=== PATIENT | female | born 1945 | race Caucasian/White ===

== ENCOUNTER 2019-03-03 00:57 | Outpatient (RCR) | payer BC, MEDICARE, SELFPAY ==
[2019-03-03] MEDS: Normal Saline Flush 10 ML SYR IVP (06:55)
[2019-03-03 07:19] LABS: Abs Immature Grans 0.01 k/cumm (0.0-0.09); HCT 29.9 % (36.0-46.0); HGB 8.6 g/dL (12.0-15.5); Mean Corp. HGB Concentration 28.8 g/dL (32.0-36.0); Mean Corpuscular Hemoglobin 28.2 pg (27.0-33.0); Mean Platelet Volume 11.8 fL (8.0-11.0); Platelet Count 260 x1000/uL (130-400); RBC 3.05 m/cumm (4.00-5.20); RBC Distribution Width 15.2 % (11.7-14.6); White Blood Cell Count 2.15 k/cumm (4.4-10.8)
[2019-03-03 07:40] LABS: ALT 28 U/L (12-78); AST 13 U/L (15-37); Albumin 3.5 g/dL (3.4-5.0); Alkaline Phosphatase 97 U/L (46-116); Anion Gap 9.7 mmol/L (3-11); BUN 15 mg/dL (7-18); Bilirubin, Total 0.5 mg/dL (0.2-1.0); CO2 27.3 mmol/L (21.0-32.0); CREATININE 0.65 mg/dL (0.55-1.02); Calcium 9.4 mg/dL (8.5-10.1); Chloride 108 mmol/L (98-107); Glucose 102 mg/dL (70-100); Potassium 4.4 mmol/L (3.5-5.1); Sodium 145 mmol/L (136-145)
[2019-03-03 07:59] LABS: Diff Comment Manual Differential
[2019-03-03 08:00] LABS: Anisocytosis 2+; Hypochromasia 2+; Microcytosis 2+; Poikilocytes 2+; Polychromasia Present
[2019-03-03 08:01] LABS: Absolute Lymphocyte Count 1.03 k/cumm (1.2-3.4); Absolute Monocyte Count 0.02 k/cumm (0.11-0.7)
== END 2019-03-22 23:59 | disposition home or self-care (01) ==
LOC: INF 00:57
PROVIDERS: PCP Internal Medicine; Visit Provider Internal Medicine Hematology & Oncology
DX: D61.818 Other pancytopenia (principal); Z45.2 Encounter for adjustment and management of vascular access device
CPT/HCPCS: 36591; 80053; 85025

== ENCOUNTER 2019-04-14 07:00 | Outpatient (RCR) | payer BC, MEDICARE, SELFPAY ==
[2019-03-31] MEDS: Heparin 500 UNITS/5 ML SYRINGE IV (06:50)
[2019-03-31 07:22] LABS: HCT 30.9 % (36.0-46.0); HGB 8.8 g/dL (12.0-15.5); Mean Corp. HGB Concentration 28.5 g/dL (32.0-36.0); Mean Corpuscular Hemoglobin 27.2 pg (27.0-33.0); Mean Corpuscular Volume 95.4 fL (80-95); Mean Platelet Volume 11.9 fL (8.0-11.0); RBC 3.24 m/cumm (4.00-5.20); RBC Distribution Width 17.1 % (11.7-14.6)
[2019-03-31 07:33] LABS: ALT 27 U/L (14-59); AST 17 U/L (15-37); Albumin 3.5 g/dL (3.4-5.0); Alkaline Phosphatase 103 U/L (46-116); Anion Gap 7.7 mmol/L (3-11); BUN 17 mg/dL (7-18); Bilirubin, Total 0.4 mg/dL (0.2-1.0); CO2 26.3 mmol/L (21.0-32.0); CREATININE 0.73 mg/dL (0.55-1.02); Calcium 9.3 mg/dL (8.5-10.1); Chloride 106 mmol/L (98-107); Glucose 102 mg/dL (70-100); Potassium 4.3 mmol/L (3.5-5.1); Sodium 140 mmol/L (136-145); Total Protein 7.2 g/dL (6.4-8.2)
[2019-03-31 08:09] LABS: White Blood Cell Count 1.77 k/cumm (4.4-10.8)
[2019-03-31 08:10] LABS: Absolute Lymphocyte Count 1.04 k/cumm (1.2-3.4); Absolute Monocyte Count 0.04 k/cumm (0.11-0.7); Absolute Neutrophil Count 0.67 k/cumm (1.2-6.7); Platelet Count 247 x1000/uL (130-400)
[2019-03-31 08:11] LABS: Anisocytosis 2+; Diff Comment Manual Differential; Hypochromasia 3+; Nucleated RBC 1 /100WBC; Other Cells 1; Polychromasia Present
[2019-03-31 08:12] LABS: Poikilocytes 2+; Stomatocytes 2+
== END 2019-04-21 23:59 | disposition home or self-care (01) ==
LOC: INF 07:00
PROVIDERS: PCP Internal Medicine; Visit Provider Internal Medicine Hematology & Oncology
DX: D61.818 Other pancytopenia (principal); Z45.2 Encounter for adjustment and management of vascular access device
CPT/HCPCS: 36591; 80053; 85025

== ENCOUNTER 2019-04-14 07:06 | Outpatient (RCR) | payer BC, SELFPAY ==
[2019-04-14] MEDS: Normal Saline Flush 10 ML SYR IVP (07:41)
[2019-04-14] MEDS: Heparin 500 UNITS/5 ML SYRINGE IVP (07:42)
[2019-04-14 07:46] LABS: ALT 27 U/L (14-59); AST 16 U/L (15-37); Albumin 3.5 g/dL (3.4-5.0); Alkaline Phosphatase 98 U/L (46-116); Anion Gap 9.5 mmol/L (3-11); BUN 21 mg/dL (7-18); Bilirubin, Total 0.5 mg/dL (0.2-1.0); CO2 23.5 mmol/L (21.0-32.0); Chloride 110 mmol/L (98-107); Glucose 99 mg/dL (70-100); Potassium 4.3 mmol/L (3.5-5.1); Sodium 143 mmol/L (136-145); Total Protein 6.8 g/dL (6.4-8.2)
[2019-04-14 07:47] LABS: HCT 26.9 % (36.0-46.0); HGB 7.7 g/dL (12.0-15.5); Mean Corp. HGB Concentration 28.6 g/dL (32.0-36.0); Mean Corpuscular Hemoglobin 26.8 pg (27.0-33.0); Mean Corpuscular Volume 93.7 fL (80-95); Mean Platelet Volume 11.2 fL (8.0-11.0); RBC 2.87 m/cumm (4.00-5.20); RBC Distribution Width 17.4 % (11.7-14.6)
[2019-04-14 08:34] LABS: Absolute Lymphocyte Count 0.75 k/cumm (1.2-3.4); Absolute Neutrophil Count 0.73 k/cumm (1.2-6.7); Anisocytosis 2+; Basophilic Stippling Present; Diff Comment Manual Differential; Hypochromasia 3+; Macrocytosis 1+; Microcytosis 1+; Nucleated RBC 1 /100WBC; Polychromasia Present
[2019-04-14 08:35] LABS: Platelet Count 88 x1000/uL (130-400); Poikilocytes 2+
[2019-04-14 08:37] LABS: White Blood Cell Count 1.49 k/cumm (4.4-10.8)
== END 2019-04-21 23:59 | disposition home or self-care (01) ==
LOC: INF 07:06
PROVIDERS: PCP Internal Medicine; Visit Provider Internal Medicine Hematology & Oncology
DX: D61.818 Other pancytopenia (principal); Z45.2 Encounter for adjustment and management of vascular access device
CPT/HCPCS: 36591; 80053; 85025

== ENCOUNTER 2019-05-06 07:00 | Outpatient (RCR) | payer BC, MEDICARE, SELFPAY ==
[2019-04-23] MEDS: Heparin 500 UNITS/5 ML SYRINGE (09:30)
[2019-04-23 09:33] LABS: Abs Immature Grans 0.01 k/cumm (0.0-0.09); Absolute Basophil Count 0.01 k/cumm (0.0-0.2); Absolute Eosinophil Count 0.01 k/cumm (0.0-0.7); Absolute Lymphocyte Count 0.82 k/cumm (1.2-3.4); Absolute Monocyte Count 0.04 k/cumm (0.11-0.7); Basophils % 0.8; Eosinophils % 0.8; HGB 7.8 g/dL (12.0-15.5); Immature Grans % 0.8; Lymphocytes % 62.6; Mean Corp. HGB Concentration 28.9 g/dL (32.0-36.0); Mean Corpuscular Hemoglobin 26.9 pg (27.0-33.0); Mean Corpuscular Volume 93.1 fL (80-95); Mean Platelet Volume 11.5 fL (8.0-11.0); Monocytes % 3.1; Neutrophils % 31.9; RBC Distribution Width 18.9 % (11.7-14.6)
[2019-04-23 09:47] LABS: ALT 26 U/L (14-59); AST 18 U/L (15-37); Albumin 3.2 g/dL (3.4-5.0); Alkaline Phosphatase 86 U/L (46-116); BUN 15 mg/dL (7-18); Bilirubin, Total 0.5 mg/dL (0.2-1.0); CREATININE 0.77 mg/dL (0.55-1.02); Calcium 9.2 mg/dL (8.5-10.1); Chloride 109 mmol/L (98-107); Glucose 108 mg/dL (70-100); Sodium 143 mmol/L (136-145); Total Protein 6.8 g/dL (6.4-8.2)
[2019-04-23 10:25] LABS: White Blood Cell Count 1.31 k/cumm (4.4-10.8)
[2019-04-23 10:26] LABS: Absolute Neutrophil Count 0.42 k/cumm (1.2-6.7)
[2019-04-23 10:27] LABS: Anisocytosis 2+; Diff Comment Agrees w/ Instrument; Hypochromasia 2+; Nucleated RBC 1 /100WBC; Platelet Count 212 x1000/uL (130-400)
[2019-04-23 10:28] LABS: Poikilocytes 2+; Polychromasia Present
[2019-04-24 11:55] LABS: Other Cells 3
[2019-05-06] MEDS: Normal Saline Flush 10 ML SYR IVP (07:00)
[2019-05-06] MEDS: Heparin 500 UNITS/5 ML SYRINGE IV (07:00)
[2019-05-06 07:34] LABS: Abs Immature Grans 0.02 k/cumm (0.0-0.09); HCT 29.9 % (36.0-46.0); HGB 8.7 g/dL (12.0-15.5); Mean Corp. HGB Concentration 29.1 g/dL (32.0-36.0); Mean Corpuscular Hemoglobin 26.7 pg (27.0-33.0); Mean Corpuscular Volume 91.7 fL (80-95); Mean Platelet Volume 12.2 fL (8.0-11.0); Platelet Count 216 x1000/uL (130-400); RBC 3.26 m/cumm (4.00-5.20); RBC Distribution Width 18.5 % (11.7-14.6)
[2019-05-06 07:48] LABS: ALT 17 U/L (14-59); AST 15 U/L (15-37); Albumin 3.4 g/dL (3.4-5.0); Alkaline Phosphatase 93 U/L (46-116); Anion Gap 9.2 mmol/L (3-11); BUN 17 mg/dL (7-18); Bilirubin, Total 0.5 mg/dL (0.2-1.0); CO2 27.8 mmol/L (21.0-32.0); CREATININE 0.76 mg/dL (0.55-1.02); Calcium 9.2 mg/dL (8.5-10.1); Chloride 107 mmol/L (98-107); Glucose 115 mg/dL (70-100); Potassium 3.8 mmol/L (3.5-5.1); Sodium 144 mmol/L (136-145); Total Protein 6.9 g/dL (6.4-8.2)
[2019-05-06 08:10] LABS: Absolute Lymphocyte Count 0.95 k/cumm (1.2-3.4); Absolute Monocyte Count 0.21 k/cumm (0.11-0.7)
[2019-05-06 08:11] LABS: Anisocytosis 2+; Diff Comment Manual Differential; Hypochromasia 2+; Nucleated RBC 1 /100WBC; Other Cells 2
[2019-05-06 08:12] LABS: Poikilocytes 3+; Polychromasia Present
== END 2019-05-22 23:59 | disposition home or self-care (01) ==
LOC: INF 07:00
PROVIDERS: PCP Internal Medicine; Visit Provider Internal Medicine Hematology & Oncology
DX: D61.818 Other pancytopenia (principal)
CPT/HCPCS: 36591; 80053; 85025

== ENCOUNTER 2019-06-11 08:01 | Outpatient (RCR) | payer BC, MEDICARE, SELFPAY ==
[2019-06-11] MEDS: Heparin 500 UNITS/5 ML SYRINGE (09:45)
[2019-06-11] MEDS: Normal Saline Flush 10 ML SYR IVP (09:47)
[2019-06-11 09:51] LABS: Abs Immature Grans 0.01 k/cumm (0.0-0.09); HCT 30.8 % (36.0-46.0); HGB 8.8 g/dL (12.0-15.5); Mean Corp. HGB Concentration 28.6 g/dL (32.0-36.0); Mean Corpuscular Volume 94.5 fL (80-95); Mean Platelet Volume 10.9 fL (8.0-11.0); RBC 3.26 m/cumm (4.00-5.20); RBC Distribution Width 20.5 % (11.7-14.6)
[2019-06-11 10:09] LABS: ALT 30 U/L (14-59); AST 20 U/L (15-37); Albumin 3.7 g/dL (3.4-5.0); Alkaline Phosphatase 93 U/L (46-116); Anion Gap 8.7 mmol/L (3-11); BUN 24 mg/dL (7-18); Bilirubin, Total 0.5 mg/dL (0.2-1.0); CO2 26.3 mmol/L (21.0-32.0); CREATININE 0.72 mg/dL (0.55-1.02); Calcium 9.3 mg/dL (8.5-10.1); Chloride 106 mmol/L (98-107); Glucose 102 mg/dL (74-106); Potassium 4.5 mmol/L (3.5-5.1); Sodium 141 mmol/L (136-145); Total Protein 7.2 g/dL (6.4-8.2)
[2019-06-11 10:13] LABS: Absolute Lymphocyte Count 1.01 k/cumm (1.2-3.4); Absolute Neutrophil Count 0.72 k/cumm (1.2-6.7); Atypical Lymphocytes % 4
[2019-06-11 10:14] LABS: Absolute Monocyte Count 0.04 k/cumm (0.11-0.7); Anisocytosis 2+; Diff Comment Manual Differential; Hypochromasia 2+; Macrocytosis 1+; Microcytosis 2+; Other Cells 2; Polychromasia Present
[2019-06-11 10:15] LABS: Platelet Count 265 x1000/uL (130-400); Poikilocytes 2+
== END 2019-06-21 23:59 | disposition home or self-care (01) ==
LOC: INF 08:01
PROVIDERS: PCP Internal Medicine; Visit Provider Internal Medicine
DX: D61.818 Other pancytopenia (principal); Z45.2 Encounter for adjustment and management of vascular access device
CPT/HCPCS: 36591; 80053; 85025

== ENCOUNTER 2019-07-21 01:14 | Outpatient (RCR) | payer BC, MEDICARE, SELFPAY ==
[2019-06-23] MEDS: Normal Saline Flush 10 ML SYR IVP (07:20)
[2019-06-23 07:30] LABS: Abs Immature Grans 0.01 k/cumm (0.0-0.09); HGB 8.5 g/dL (12.0-15.5); Mean Corp. HGB Concentration 29.3 g/dL (32.0-36.0); Mean Corpuscular Hemoglobin 27.3 pg (27.0-33.0); Mean Corpuscular Volume 93.2 fL (80-95); Mean Platelet Volume 11.2 fL (8.0-11.0); Platelet Count 175 x1000/uL (130-400); RBC 3.11 m/cumm (4.00-5.20); RBC Distribution Width 18.7 % (11.7-14.6)
[2019-06-23 07:46] LABS: ALT 22 U/L (14-59); AST 17 U/L (15-37); Albumin 3.4 g/dL (3.4-5.0); Alkaline Phosphatase 101 U/L (46-116); BUN 25 mg/dL (7-18); Bilirubin, Total 0.3 mg/dL (0.2-1.0); CREATININE 0.99 mg/dL (0.55-1.02); Chloride 108 mmol/L (98-107); Estimated GFR 55.14 (mL/min/1.73m2); Glucose 120 mg/dL (74-106); Potassium 4.5 mmol/L (3.5-5.1); Sodium 142 mmol/L (136-145); Total Protein 6.7 g/dL (6.4-8.2)
[2019-06-23 08:08] LABS: Absolute Lymphocyte Count 1.04 k/cumm (1.2-3.4); Absolute Monocyte Count 0.04 k/cumm (0.11-0.7); Absolute Neutrophil Count 0.69 k/cumm (1.2-6.7); White Blood Cell Count 1.76 k/cumm (4.4-10.8)
[2019-06-23 08:09] LABS: Anisocytosis 2+; Diff Comment Manual Differential; Hypochromasia 2+; Macrocytosis 1+; Microcytosis 2+; Poikilocytes 2+; Polychromasia Present
[2019-07-14] MEDS: Heparin 500 UNITS/5 ML SYRINGE (07:37)
[2019-07-14] MEDS: Normal Saline Flush 10 ML SYR IVP (07:37)
[2019-07-14 07:44] LABS: Absolute Eosinophil Count 0.01 k/cumm (0.0-0.7); HCT 25.3 % (36.0-46.0); HGB 7.5 g/dL (12.0-15.5); Mean Corp. HGB Concentration 29.6 g/dL (32.0-36.0); Mean Corpuscular Hemoglobin 28.5 pg (27.0-33.0); Mean Corpuscular Volume 96.2 fL (80-95); Mean Platelet Volume 12.5 fL (8.0-11.0); RBC 2.63 m/cumm (4.00-5.20); RBC Distribution Width 21.3 % (11.7-14.6)
[2019-07-14 08:06] LABS: ALT 21 U/L (14-59); AST 18 U/L (15-37); Albumin 3.3 g/dL (3.4-5.0); Alkaline Phosphatase 90 U/L (46-116); Anion Gap 11.1 mmol/L (3-11); BUN 17 mg/dL (7-18); Bilirubin, Total 0.5 mg/dL (0.2-1.0); CO2 24.9 mmol/L (21.0-32.0); CREATININE 0.78 mg/dL (0.55-1.02); Calcium 8.7 mg/dL (8.5-10.1); Chloride 108 mmol/L (98-107); Glucose 108 mg/dL (74-106); Potassium 4.6 mmol/L (3.5-5.1); Sodium 144 mmol/L (136-145); Total Protein 6.5 g/dL (6.4-8.2)
[2019-07-14 08:07] LABS: White Blood Cell Count 1.13 k/cumm (4.4-10.8)
[2019-07-14 08:09] LABS: Absolute Monocyte Count 0.01 k/cumm (0.11-0.7); Other Cells 4; Platelet Count 115 x1000/uL (130-400)
[2019-07-14 08:10] LABS: Anisocytosis 3+; Diff Comment Manual Differential; Hypochromasia 2+; Macrocytosis 1+; Microcytosis 1+; Poikilocytes 2+; Polychromasia Present
[2019-07-14 08:11] LABS: Absolute Lymphocyte Count 0.78 k/cumm (1.2-3.4); Absolute Neutrophil Count 0.28 k/cumm (1.2-6.7); Nucleated RBC 1 /100WBC
[2019-07-21] MEDS: Normal Saline Flush 10 ML SYR IVP (07:59)
[2019-07-21] MEDS: Heparin 500 UNITS/5 ML SYRINGE IV (08:00)
[2019-07-21 08:12] LABS: Absolute Monocyte Count 0.01 k/cumm (0.11-0.7); HGB 8.5 g/dL (12.0-15.5); Mean Corp. HGB Concentration 29.3 g/dL (32.0-36.0); Mean Corpuscular Volume 95.4 fL (80-95); Mean Platelet Volume 10.6 fL (8.0-11.0); RBC 3.04 m/cumm (4.00-5.20); RBC Distribution Width 20.5 % (11.7-14.6)
[2019-07-21 08:23] LABS: ALT 23 U/L (14-59); AST 19 U/L (15-37); Albumin 3.5 g/dL (3.4-5.0); Alkaline Phosphatase 93 U/L (46-116); Anion Gap 10.7 mmol/L (3-11); BUN 22 mg/dL (7-18); Bilirubin, Total 0.5 mg/dL (0.2-1.0); CO2 25.3 mmol/L (21.0-32.0); CREATININE 0.71 mg/dL (0.55-1.02); Calcium 9.2 mg/dL (8.5-10.1); Chloride 108 mmol/L (98-107); Glucose 119 mg/dL (74-106); Potassium 4.1 mmol/L (3.5-5.1); Sodium 144 mmol/L (136-145)
[2019-07-21 08:40] LABS: Absolute Neutrophil Count 0.43 k/cumm (1.2-6.7); White Blood Cell Count 1.26 k/cumm (4.4-10.8)
[2019-07-21 08:41] LABS: Absolute Lymphocyte Count 0.77 k/cumm (1.2-3.4); Atypical Lymphocytes % 1; Platelet Count 228 x1000/uL (130-400)
[2019-07-21 08:43] LABS: Anisocytosis 3+; Basophilic Stippling Present; Diff Comment Manual Differential; Hypochromasia 2+; Nucleated RBC 1 /100WBC; Other Cells 4
[2019-07-21 08:44] LABS: Poikilocytes 3+
== END 2019-07-22 23:59 | disposition home or self-care (01) ==
LOC: INF 01:14
PROVIDERS: Internal Medicine Hematology & Oncology; PCP Internal Medicine; Visit Provider Internal Medicine
DX: D61.818 Other pancytopenia (principal); Z45.2 Encounter for adjustment and management of vascular access device
CPT/HCPCS: 36591; 80053; 86900; 86901; 85025

== ENCOUNTER 2019-07-28 01:55 | Outpatient (RCR) | payer BC, MEDICARE, SELFPAY | END 2019-08-22 23:59 | disposition home or self-care (01) | LOC: INF 01:55 | PROVIDERS: PCP Internal Medicine; Visit Provider Internal Medicine | DX: R69 Illness, unspecified (principal) ==

== ENCOUNTER 2019-09-04 10:39 | Observation (INO) | payer BC, MEDICARE, SELFPAY ==
--- NOTE | 2019-09-04 10:44 | W.PM.HP.N ---
Date of service: 09/04/19 Time of Service: 10:44 Assessment and Plan Assessment and plan (1) Hypomagnesemia: Status: Acute Assessment and plan: mag level 0.9, will replete and follow (2) Hypokalemia: Status: Acute Assessment and plan: level 2.8, with replete and follow (3) History of stem cell transplant: Status: Acute Assessment and plan: will continue home medications, recommendations given by hemo/onc to decreased tacrolimus to 1 mg in am and 0.5 mg in pm. this is likely cause of electrolyte disburbances (4) MDS (myelodysplastic syndrome): Status: Acute Assessment and plan: follow by hemo/onc at [facility]. will continue f/u outpatient, continue home medications (5) Hypercholesteremia: Status: Acute Assessment and plan: stable, will continue home medications (6) Hypothyroidism: Status: Acute Assessment and plan: continue synthroid (7) Hypertension: Status: Acute Assessment and plan: monitor blood pressure and continue home medications (8) Discharge planning issues: Status: Acute Assessment and plan: anticipate a discharge to home with no services once electrolytes replaced. History of Present Illness History of Present Illness Chief Complaint: hypomagnesemia Narrative: Patient presents from outpatient infusion clinic for hypomagnesemia and hypokalemia. She was scheduled for outpatient infusion but when labs drawn and it was noted that her magnesium was 0.9 it was felt she would be best served admitted to observation status for electrolyte replacement and monitoring. Hospitalist services was contacted and patient was excepted. Plan is to replace electrolytes provide IV hydration and repeat labs in the a.m. Review of Systems Constitutional Constitutional: Denies chills and Denies fever(s) Cardiovascular Cardiovascular: Denies chest pain Gastrointestinal Gastrointestinal: Denies abdominal pain and Reports nausea [facility] Medical History (Updated 09/04/19 @ 10:58 by Suri Hua NP) Blind left eye (Inactive) Diverticulitis (Inactive) Hypercholesteremia (Acute) Hypertension (Acute) Hypothyroidism (Acute) Osteoarthritis (Inactive) Reactive airway disease (Acute) Social History (Updated 09/04/19 @ 10:49 by Suri Hua NP) Smoking/Tobacco Use Status: Never Alcohol Intake: current Alcohol Intake frequency: holidays/special occasions only Substance use type: does not use Additional Social history: in room @ this time, questions not asked. Meds Home Medications and Allergies Home Medications Medication Instructions Recorded Confirmed Type acyclovir 800 mg PO BID 09/04/19 09/04/19 History amiodarone 200 mg PO DAILY 09/04/19 09/04/19 History ciclopirox [Loprox] See Rx Instructions .ROUTE .COMPLEX 09/04/19 09/04/19 History diltiazem HCl 180 mg PO DAILY 09/04/19 09/04/19 History fluconazole 400 mg PO DAILY 09/04/19 09/05/19 History levothyroxine 75 mcg PO DAILY 09/04/19 09/04/19 History lorazepam 0.5 mg PO Q4H PRN PRN 09/04/19 09/04/19 History magnesium oxide-Mg AA chelate 2 tab PO DAILY 09/04/19 09/04/19 History metoprolol succinate 150 mg PO DAILY 09/04/19 09/05/19 History multivitamin 1 tab PO DAILY 09/04/19 09/04/19 History mycophenolate mofetil 1,000 mg PO TID 09/04/19 09/04/19 History nystatin 5 ml PO QID 09/04/19 09/04/19 History olanzapine [Zyprexa] 2.5 mg PO QPM 09/04/19 09/04/19 History ondansetron HCl 4 mg PO Q4H PRN 09/04/19 09/04/19 History pantoprazole 40 mg PO DAILY 09/04/19 09/04/19 History simvastatin 20 mg PO QPM 09/04/19 09/04/19 History triamcinolone acetonide See Rx Instructions .ROUTE .COMPLEX 09/04/19 09/04/19 History magnesium oxide 800 mg PO BID #0 tab 09/05/19 09/04/19 Rx potassium chloride 20 meq PO DAILY #30 tab 09/05/19 Rx tacrolimus 1.5 mg PO DAILY #0 cap 09/05/19 09/04/19 Rx Allergies Allergy/AdvReac Type Severity Reaction Status Date / Time nickel Allergy Skin Rash Unverified 09/04/19 14:55 Penicillins Allergy Hives Unverified 09/04/19 14:55 pentazocine [From Talwin] Allergy Visual Unverified 09/04/19 14:55 Disturbances prochlorperazine Allergy Other (See Unverified 09/04/19 14:55 [From Compazine] Comment) Exam Const General: cooperative, comfortable, no acute distress, frail appearing and ill appearing chronically Nutritional Appearance: average body habitus Orientation: alert, awake and oriented x3 Limitations: altered mental status Chest Chest: normal inspection of the chest Resp Effort & Inspection: normal respiratory effort Auscultation: clear to auscultation bilaterally Cardio Rate: regular rate Rhythm: regular rhythm GI Inspection: normal to inspection Palpation: soft Neuro General: alert and awake Results Labs Result diagrams: 09/05/19 13:32
[2019-09-04 10:45] VITALS: BP 148/80; PULSE 83; RESP 20; RESP 24; TEMP 37.3; O2SAT 94
[2019-09-04 10:59] VITALS: PULSE 88
[2019-09-04] MEDS: MAGNESIUM SULFATE 2 GM/50 ML BAG IVPB ×2 (11:30→13:18)
[2019-09-04] MEDS: Normal Saline 1,000 ML 125 ML IV ×2 (13:13→20:38)
[2019-09-04 14:14] VITALS: BP 148/80; PULSE 83; RESP 20; TEMP 37.3; O2SAT 94
[2019-09-04] MEDS: LORazepam 1 MG TAB PO (14:25)
[2019-09-04] MEDS: MAGNESIUM SULFATE 1 GM/100 ML BAG IVPB ×2 (15:12→16:19)
[2019-09-04 15:38] VITALS: BP 132/70; PULSE 75; RESP 18; TEMP 37; O2SAT 95
[2019-09-04] MEDS: POTASSIUM CHLORIDE 10 MEQ/100 ML BAG 100 MEQ IVPB ×4 (17:31→20:40)
[2019-09-04 18:22] LABS: Magnesium 2.6 mg/dL (1.8-2.4)
[2019-09-04 18:24] LABS: Potassium 2.7 mmol/L (3.5-5.1)
[2019-09-04 19:43] VITALS: BP 146/76; PULSE 78; RESP 18; TEMP 37.3; O2SAT 95
[2019-09-04] MEDS: Acyclovir 400 MG TAB 800 MG PO (22:13)
[2019-09-04] MEDS: OLANZapine 2.5 MG TAB PO (22:13)
[2019-09-04] MEDS: Simvastatin 20 MG TAB PO (22:13)
[2019-09-04] MEDS: Levothyroxine 75 MCG TAB PO (22:14)
[2019-09-04] MEDS: Tacrolimus 1 MG CAP 0.5 MG PO (22:15)
[2019-09-04 22:50] LABS: Potassium 3.2 mmol/L (3.5-5.1)
[2019-09-04 23:10] VITALS: BP 149/81; PULSE 88; RESP 17; TEMP 37.5; O2SAT 95
[2019-09-05] VITALS (7 sets, daily range): BP systolic 130–150; BP diastolic 71–80; PULSE 76–83; RESP 14–18; TEMP 37–37.4; O2SAT 95–97
[2019-09-05] MEDS: LORazepam 1 MG TAB PO (00:56)
[2019-09-05] MEDS: Normal Saline 1,000 ML 125 ML IV ×2 (03:46→11:31)
[2019-09-05] MEDS: POTASSIUM CHLORIDE 10 MEQ/100 ML BAG 100 MEQ IVPB ×2 (06:44→07:44)
[2019-09-05 06:50] LABS: Anion Gap 9.7 mmol/L (3-11); BUN 5 mg/dL (7-18); CO2 24.3 mmol/L (21.0-32.0); CREATININE 0.72 mg/dL (0.55-1.02); Calcium 7.6 mg/dL (8.5-10.1); Chloride 106 mmol/L (98-107); Glucose 99 mg/dL (74-106); Magnesium 1.4 mg/dL (1.8-2.4); Sodium 140 mmol/L (136-145)
[2019-09-05 07:13] LABS: Potassium 2.9 mmol/L (3.5-5.1)
[2019-09-05] MEDS: Acyclovir 400 MG TAB 800 MG PO (07:43)
[2019-09-05] MEDS: Tacrolimus 0.5 MG CAP 1 MG PO (07:44)
[2019-09-05] MEDS: POTASSIUM CHLORIDE 20 MEQ/100 ML BAG 100 MEQ IVPB ×3 (09:01→11:31)
[2019-09-05] MEDS: MAGNESIUM SULFATE 4 GM/100 ML BAG IVPB (09:08)
--- NOTE | 2019-09-05 10:43 | PHARADMIT ---
Admission Pharmacy Clinical Review ELECTROLYTE ABNORMALIIES, h/o Bone marrow transplant) Code Status Full Code Current Weight Wgt-69.8 kg Renally Cleared and Narrow Therapeutic Index Meds CrCl~ 50.27 mL/min Meds-OK QTc Value / Action Taken QTc- 428 & 454 BP Control, Fever BP- 149/71 Tmax- 37.5C Electrolytes reviewed Na-140 K+2.9 Mag- 1.4 DVT Prophylaxis No DVT proph, will ask MD Opiate Usage / Scheduled Bowel Regimen Ordered No No Plt/SCr for Heparin / Enoxaparin SCr-0.72 INR for Warfarin na H/H stable, WBC/Bands na Antibiotic appropriateness none Cultures and Sensitivities none Surgical ABX d/c within 24 hr na DM control / Insulin Dosing BG-99 Heart Failure (Check EF%) (DONOVAN's, B-Block, Diuretics) Amiodarone, Diltiazem, Toprol-XL, IV to PO Switch No Home Meds Reviewed Yes Home Meds Not Ordered ORDERED EXCEPT FOR BELOW MEDS Comments [facility] did not verify TAC Crm, nor the Loprox scalp lotion.
[2019-09-05] MEDS: Amiodarone 200 MG TAB PO (10:54)
[2019-09-05] MEDS: Metoprolol CR 50 MG TABCR 150 MG PO (10:54)
[2019-09-05] MEDS: Pantoprazole 40 MG TABCR PO (10:54)
[2019-09-05] MEDS: Multivitamin TAB 1 TAB PO (10:54)
[2019-09-05] MEDS: dilTIAZem CD 180 MG CAPCR PO (10:54)
--- NOTE | 2019-09-05 11:30 | INITIAL_ITS ---
- If Service Date Differs Date of service: 09/05/19 Time of Service: 11:30 Care Management Initial Assess REASON FOR HOSPITALIZATION:: Electrolyte Abnormalities PAST MEDICAL HISTORY/PAST SURGICAL HISTORY:: Medical History (Updated 09/04/19 @ 10:58 by Suri Hua NP). Blind left eye (Inactive). Diverticulitis (Inactive). Hypercholesteremia (Acute). Hypertension (Acute). Hypothyroidism (Acute). Osteoarthritis (Inactive). Reactive airway disease (Acute) PREVIOUS FUNCTIONAL STATUS/SOCIAL/FAMILY SUPPORTS:: Hazel lives in [place] with her , Ge. She recently had a bone marrow transplant. 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 She is independent at baseline. CURRENT FUNCTIONAL STATUS:: Hazel was sitting up in her chair when CM met with her. She reported that she was feeling better today. Per MD, her Potassium and Magnesium are being repleted today while she is here for observation. She stated that she is receiving excellent care at [facility]. CM will continue to follow. ADVANCE DIRECTIVES:: None on file. Has patient been provided with information about the portal?: No Did the patient sign up for the portal?: No CODE STATUS:: Full Code INSURANCE COVERAGE / FINANCIAL ISSUES:: BCBS/MCR CURRENT HOME/COMMUNITY SERVICES/EQUIPMENT:: Hazel does not currently have services or equipment at home. PRIMARY CARE PHYSICIAN:: Sindi Lawson POTENTIAL DISCHARGE NEEDS:: Evalutations for further needs, follow up appointments PATIENT/FAMILY EDUCATION NEEDS:: Review discharge instructions regarding activity levels and medications, discussion of self care needs and goals of care. ANTICIPATED BARRIERS TO DISCHARGE:: None identified at this time. TRANSPORTATION:: Anticipate Hazel will be transported home via private vehicle by her . PLAN:: Anticipate Hazel will return home with no additional services once medically cleared. She will be driven home by her via private vehicle when ready. She will follow up with her PCP, as recommended. CM will continue to follow.
[2019-09-05 13:53] LABS: Magnesium 2.3 mg/dL (1.8-2.4); Potassium 4.3 mmol/L (3.5-5.1)
--- NOTE | 2019-09-05 14:37 | W.NUTCONSULT ---
Date of service: 09/05/19 Time of Service: 14:37 Nutritional Consult ASSESSMENT: 73 year old female s/o stem cell transplant in July 2019 for MDS, s/p chemo. She was admitted due to low Mg and potassium, receiving repletion. PMH: hyperlipidemia, HTN. Met with Hazel today, she reports that her appetite is coming back slowly since treatment and that she mostly maintained her weight in last couple of weeks. Appears well nourished. Following regular meal plan with adequate intake. Reports no chewing or swallowing issues. No longer on neutrapenic precautions as WBC wnl. To discharge home today. will be available prn. MONITORING AND EVALUATION: po intake, weight, labs Time Spent in Nutritional Counseling and Treatment: 10 min spent face to face
--- NOTE | 2019-09-05 15:02 | W.PM.DS.N ---
Date of service: 09/05/19 Time of Service: 15:02 DS: Diagnosis Discharge Diagnosis (1) Hypomagnesemia: Status: Acute (2) Hypokalemia: Status: Acute (3) History of stem cell transplant: Status: Acute (4) MDS (myelodysplastic syndrome): Status: Acute (5) Hypercholesteremia: Status: Acute (6) Hypothyroidism: Status: Acute (7) Hypertension: Status: Acute (8) Discharge planning issues: Status: Acute Discharge Plan Disposition Patient Disposition: HOME Condition: Fair Discharge Details Reason For Visit: ELECTROLYTE ABNORMALITIES Admit Date/Time: 09/04/19 10:39 Admit Provider: Vaughn Tenorio Attending Provider: Vaughn Tenorio Primary Care Provider: Sindi Lawson [facility] Course Hospital Course: 73-year-old woman with myelodysplastic syndrome approximately 1 month status post bone marrow transplant was directed needed from infusion at the request of her oncologist for severe hypokalemia and hypomagnesemia. Patient got a total of 9 g of magnesium oxide and 100 mEq of potassium chloride intravenously during her overnight observation stay. Potassium on the day of discharge was 4.3 magnesium of 2.3. Her magnesium oxide was increased to 800 twice a day and she was given 20 mEq of potassium daily. Per the recommendation of her oncologist, the tacrolimus was also decreased from 1.5 mg twice daily to 1 mg in the morning and 0.5 mg in the evening, which she felt should mitigate the electrolyte disturbances. Also of note, the patient had some left dorsal wrist pain and tenderness over her dorsal carpal bones. She denied any trauma. We offered x-ray, but patient prefers to follow-up where her care team is in [facility]. She was given a neutral wrist splint. Home Meds and New Rx's Prescriptions: New potassium chloride 20 mEq tablet extended release 20 meq PO DAILY Qty: 30 RF: 1 Continued olanzapine [Zyprexa] 2.5 mg Tablet 2.5 mg PO QPM RF: 0 nystatin 100,000 unit/mL Suspension 5 ml PO QID RF: 0 diltiazem HCl 180 mg Capsule,Extended Release 24 Hr 180 mg PO DAILY RF: 0 amiodarone 200 mg Tablet 200 mg PO DAILY RF: 0 metoprolol succinate 50 mg Tablet Extended Release 24 Hr 150 mg PO DAILY RF: 0 mycophenolate mofetil 250 mg Capsule 1,000 mg PO TID RF: 0 fluconazole 200 mg Tablet 400 mg PO DAILY RF: 0 ondansetron HCl 4 mg Tablet 4 mg PO Q4H PRNRF: 0 triamcinolone acetonide 0.1 % Cream See Rx Instructions .ROUTE .COMPLEX RF: 0 acyclovir 800 mg Tablet 800 mg PO BID RF: 0 levothyroxine 75 mcg Tablet 75 mcg PO DAILY RF: 0 lorazepam 0.5 mg Tablet 0.5 mg PO Q4H PRN PRNRF: 0 pantoprazole 40 mg Tablet,Delayed Release (Dr/Ec) 40 mg PO DAILY RF: 0 simvastatin 20 mg Tablet 20 mg PO QPM RF: 0 ciclopirox [Loprox] 1 % Shampoo See Rx Instructions .ROUTE .COMPLEX RF: 0 magnesium oxide-Mg AA chelate 133 mg Tablet 2 tab PO DAILY RF: 0 multivitamin Tablet 1 tab PO DAILY RF: 0 Changed magnesium oxide 400 mg (241.3 mg magnesium) Tablet 800 mg PO BID Qty: 0 RF: 0 tacrolimus 0.5 mg Capsule 1.5 mg PO DAILY Qty: 0 RF: 0 Discharge Instructions Instructions: Hypokalemia (DC), Hypomagnesemia (DC) Additional Instructions: Follow-up with regular electrolyte monitoring per oncology plan Take increased dose magnesium and daily potassium supplementation Continue to ice your wrist and use splint for comfort, follow-up with your primary care Activity:: Activity as Tolerated Equipment/Supplies:: Left wrist splint Diet:: As Tolerated Discharge Orders Discharge Orders: Discharge Order (Routine); Ordered 09/05/19 Ordered By: Vaughn Tenorio DS: Summary Status at Discharge Functional status at discharge: independent ambulation Overall status at discharge: patient is back to baseline Mental Status: mental status grossly normal Speech and Movement: speech and movement normal Mood: congruent mood Affect: normal affect Time Spent with Patient providing and/or coordinating discharge services: Less than 30 minutes Exam Narrative Exam Narrative: General: Alert and oriented, no cute distress, nontoxic HEENT: Diffuse alopecia. Conjunctive are clear, no icterus. Moist mucous membranes. Cardiovascular: Regular rate and rhythm no murmurs gallops or rubs. Pulmonary: Normal respiratory effort. Clear to auscultation anteriorly. Abdomen: Active bowel sounds, soft, nontender. Extremities: No cyanosis, clubbing, or edema. Subtle swelling the dorsal mid wrist, tender to palpation. Pain worse with flexion or extension of digits, though she is able to move them. Area is not hot. Psych Mental Status: mental status grossly normal Speech and Movement: speech and movement normal Mood: congruent mood Affect: normal affect DS: Data Vitals/I&O Vitals and I&O: Vital Signs Temperature 37.0 C 09/05/19 11:07 Temperature Source Tympanic 09/05/19 11:07 Pulse 76 09/05/19 11:07 Pulse Rhythm Irregular 09/05/19 07:15 Respiratory Rate 14 09/05/19 11:07 Respiratory Effort Non-Labored 09/05/19 07:15 Respiratory Depth Normal 09/05/19 07:15 Respiratory Pattern Normal 09/05/19 07:15 Blood Pressure 130/80 09/05/19 11:07 Pulse Oximetry 95 09/05/19 11:07 Oxygen Delivery Method Room Air 09/05/19 11:07 Oxygen Flow Rate 0 09/05/19 11:07 Pain Level 4 09/05/19 11:07 Comment 09/05/19 11:07 Intake & Output 09/04/19 09/05/19 09/05/19 23:59 11:59 23:59 Intake Total 1700.416 / 8796.975 9714.417 / 2300.417 240 / 2300.417 Output Total 1300 / 1300 1500 / 1500 Balance 400.416 / 400.416 560.417 / 800.417 240 / 800.417 Weight 69.853 kg Intake: IV 1460.416 / 9198.628 3886.417 / 2060.417 Oral 240 / 240 240 / 240 Output: Urine 1300 / 1300 1500 / 1500 Other: Urine Color Yellow Yellow Urine Appearance Clear Clear Urine Odor Normal Normal Stool Size Moderate Stool Characteristics Soft Liquid Brown Voiding Methods Toilet Toilet Data Completed and Pending Labs on day of discharge: Labs from last 24 hours 09/05/19 09/05/19 09/04/19 13:32 06:05 22:37 Sodium 140 Potassium 4.3 D 2.9 L* 3.2 L Chloride 106 Carbon Dioxide 24.3 Anion Gap 9.7 BUN 5 L Creatinine 0.72 Estimated GFR/1.73 m2 >= 60.00 Glucose 99 Calcium 7.6 L Magnesium 2.3 1.4 L 09/04/19 09/04/19 18:10 18:10 Sodium Potassium 2.7 L* Chloride Carbon Dioxide Anion Gap BUN Creatinine Estimated GFR/1.73 m2 Glucose Calcium Magnesium 2.6 H [facility] Medical History (Updated 09/04/19 @ 10:58 by Suri Hua NP) Blind left eye (Inactive) Diverticulitis (Inactive) Hypercholesteremia (Acute) Hypertension (Acute) Hypothyroidism (Acute) Osteoarthritis (Inactive) Reactive airway disease (Acute) Social History (Updated 09/04/19 @ 10:49 by Suri Hua NP) Smoking/Tobacco Use Status: Never Alcohol Intake: current Alcohol Intake frequency: holidays/special occasions only Substance use type: does not use Additional Social history: in room @ this time, questions not asked.
[2019-09-05] MEDS: Heparin 500 UNITS/5 ML SYRINGE IVP (15:55)
--- NOTE | 2019-09-05 17:55 | PDOC.CMDIS ---
- If Service Date Differs Date of service: 09/05/19 Time of Service: 17:55 LACE Index Scoring Tool - Questions: Length of Stay (in days): 2 Acuity (Admit via E.D.?): No E.D. Visits: 0 - Answers: Total Score: 2 Risk of Readmission: Low Risk Care Management Discharge Reason for Hospitalization: Electrolyte Abnormalities Discharge Plan: Hazel will return home with no additional services at this time. Her will drive her home via private vehicle. She will follow up with her PCP, as recommended. Patient/Family Education Needs: Review discharge instructions regarding activity levels and medications, discussion of self care needs including ask me three
== END 2019-09-05 16:18 | disposition home or self-care (01) ==
PROVIDERS: Internal Medicine; Nurse Practitioner Acute Care; Admitting Provider Family Medicine; PCP Internal Medicine; Visit Provider Family Medicine
DX: E87.6 Hypokalemia (principal); E83.42 Hypomagnesemia; D46.9 Myelodysplastic syndrome, unspecified; Z94.81 Bone marrow transplant status; M25.532 Pain in left wrist; E03.9 Hypothyroidism, unspecified; E78.00 Pure hypercholesterolemia, unspecified; I10 Essential (primary) hypertension
CPT/HCPCS: 36415; 80048; 99220; 99238; 83735; 84132; 93005; 93010; G0378; J3475; J3480; J3490; J7517; L3908

== ENCOUNTER 2019-09-19 04:28 | Outpatient (RCR) | payer BC, SELFPAY ==
[2019-09-04] MEDS: Normal Saline Flush 10 ML SYR IVP (09:15)
[2019-09-04] MEDS: Normal Saline 1,000 ML 250 ML IV (09:15)
[2019-09-04 09:31] LABS: ALT 27 U/L (14-59); AST 36 U/L (15-37); Albumin 2.6 g/dL (3.4-5.0); Alkaline Phosphatase 118 U/L (46-116); BUN 12 mg/dL (7-18); Bilirubin, Total 0.4 mg/dL (0.2-1.0); Calcium 8.1 mg/dL (8.5-10.1); Chloride 101 mmol/L (98-107); Glucose 110 mg/dL (74-106); Magnesium 0.9 mg/dL (1.8-2.4); PHOSPHORUS 3.5 mg/dL (2.6-4.7); Sodium 139 mmol/L (136-145); Total Protein 6.1 g/dL (6.4-8.2)
[2019-09-04 09:49] LABS: Potassium 2.8 mmol/L (3.5-5.1)
[2019-09-12] MEDS: Normal Saline 1,000 ML 250 ML IV (08:15)
[2019-09-12] MEDS: Normal Saline Flush 10 ML SYR IVP (08:20)
[2019-09-12] MEDS: Heparin 500 UNITS/5 ML SYRINGE IV (08:20)
[2019-09-12 08:27] LABS: Abs Immature Grans 1.42 k/cumm (0.0-0.09); HGB 7.9 g/dL (12.0-15.5); Mean Corp. HGB Concentration 32.9 g/dL (32.0-36.0); Mean Corpuscular Hemoglobin 28.6 pg (27.0-33.0); Mean Platelet Volume 10.1 fL (8.0-11.0); RBC 2.76 m/cumm (4.00-5.20); RBC Distribution Width 15.7 % (11.7-14.6); White Blood Cell Count 12.63 k/cumm (4.4-10.8)
[2019-09-12 08:37] LABS: ALT 44 U/L (14-59); AST 38 U/L (15-37); Albumin 2.4 g/dL (3.4-5.0); Alkaline Phosphatase 175 U/L (46-116); Anion Gap 11.6 mmol/L (3-11); BUN 10 mg/dL (7-18); Bilirubin, Total 0.3 mg/dL (0.2-1.0); CO2 29.4 mmol/L (21.0-32.0); CREATININE 0.83 mg/dL (0.55-1.02); Calcium 8.9 mg/dL (8.5-10.1); Chloride 110 mmol/L (98-107); Glucose 123 mg/dL (74-106); Magnesium 1.1 mg/dL (1.8-2.4); PHOSPHORUS 2.6 mg/dL (2.6-4.7); Sodium 151 mmol/L (136-145); Total Protein 6.2 g/dL (6.4-8.2)
[2019-09-12 08:49] LABS: Potassium 2.8 mmol/L (3.5-5.1)
[2019-09-12 09:27] LABS: Diff Comment Manual Differential
[2019-09-12 09:28] LABS: Absolute Lymphocyte Count 0.25 k/cumm (1.2-3.4); Absolute Monocyte Count 2.65 k/cumm (0.11-0.7); Absolute Neutrophil Count 8.59 k/cumm (1.2-6.7); Promyelocytes % 1 %
[2019-09-12 09:29] LABS: Anisocytosis 1+; Polychromasia Present
[2019-09-12 09:30] LABS: Platelet Count 305 x1000/uL (130-400); Poikilocytes 1+
[2019-09-12] MEDS: POTASSIUM CHLORIDE 20 MEQ/100 ML BAG 50 MEQ IVPB ×5 (09:43→14:09)
[2019-09-12] MEDS: MAGNESIUM SULFATE 2 GM/50 ML BAG IVPB ×2 (09:44→11:20)
[2019-09-12 13:40] VITALS: BP 175/84; PULSE 75; RESP 19; TEMP 35.7; O2SAT 99
[2019-09-12] MEDS: MAGNESIUM SULFATE 1 GM/100 ML BAG IVPB (15:07)
[2019-09-19 08:25] LABS: HCT 26.1 % (36.0-46.0); HGB 8.2 g/dL (12.0-15.5); Mean Corp. HGB Concentration 31.4 g/dL (32.0-36.0); Mean Corpuscular Hemoglobin 29.2 pg (27.0-33.0); Mean Corpuscular Volume 92.9 fL (80-95); Platelet Count 256 x1000/uL (130-400); RBC 2.81 m/cumm (4.00-5.20); RBC Distribution Width 20.4 % (11.7-14.6); White Blood Cell Count 18.29 k/cumm (4.4-10.8)
[2019-09-19 08:37] LABS: ALT 38 U/L (14-59); AST 27 U/L (15-37); Albumin 2.9 g/dL (3.4-5.0); Alkaline Phosphatase 153 U/L (46-116); Anion Gap 9.7 mmol/L (3-11); BUN 19 mg/dL (7-18); Bilirubin, Total 0.2 mg/dL (0.2-1.0); CO2 25.3 mmol/L (21.0-32.0); CREATININE 1.02 mg/dL (0.55-1.02); Calcium 9.3 mg/dL (8.5-10.1); Chloride 104 mmol/L (98-107); Estimated GFR 53.27 (mL/min/1.73m2); Glucose 138 mg/dL (74-106); Magnesium 1.4 mg/dL (1.8-2.4); PHOSPHORUS 3.2 mg/dL (2.6-4.7); Potassium 4.3 mmol/L (3.5-5.1); Sodium 139 mmol/L (136-145); Total Protein 6.6 g/dL (6.4-8.2)
[2019-09-19] MEDS: MAGNESIUM SULFATE 2 GM/50 ML BAG IVPB ×2 (09:15→10:44)
[2019-09-19] MEDS: DEXTROSE 5%-WATER 1,000 ML 250 ML IV (09:15)
[2019-09-19 09:42] LABS: Absolute Neutrophil Count 13.17 k/cumm (1.2-6.7)
[2019-09-19 09:43] LABS: Absolute Eosinophil Count 0.37 k/cumm (0.0-0.7); Absolute Lymphocyte Count 0.37 k/cumm (1.2-3.4); Absolute Monocyte Count 1.46 k/cumm (0.11-0.7)
[2019-09-19 09:44] LABS: Absolute Basophil Count 0.18 k/cumm (0.0-0.2); Promyelocytes % 3 %
[2019-09-19 09:45] LABS: Anisocytosis 3+; Diff Comment Manual Differential; Other Cells 1
[2019-09-19 09:46] LABS: Hypochromasia 1+; Macrocytosis 1+; Microcytosis 1+; Poikilocytes 2+; Polychromasia Present
== END 2019-09-20 23:59 | disposition home or self-care (01) ==
LOC: INF 04:28
PROVIDERS: Internal Medicine; PCP Internal Medicine; Visit Provider Family Medicine
DX: E87.6 Hypokalemia (principal); E83.42 Hypomagnesemia; Z94.84 Stem cells transplant status; D46.9 Myelodysplastic syndrome, unspecified; Z45.2 Encounter for adjustment and management of vascular access device
CPT/HCPCS: 36591; 80053; 86850; 86900; 86901; 96360; 96361; 96365; 96366; 83735; 84100; 85025; J3475; J3480; J7060

== ENCOUNTER 2019-10-22 02:29 | Outpatient (RCR) | payer BC, MEDICARE, SELFPAY ==
[2019-09-24 08:31] LABS: ALT 32 U/L (14-59); AST 18 U/L (15-37); Albumin 3.1 g/dL (3.4-5.0); Alkaline Phosphatase 132 U/L (46-116); Anion Gap 8.3 mmol/L (3-11); BUN 33 mg/dL (7-18); Bilirubin, Total 0.3 mg/dL (0.2-1.0); CO2 24.7 mmol/L (21.0-32.0); CREATININE 1.16 mg/dL (0.55-1.02); Calcium 9.2 mg/dL (8.5-10.1); Chloride 106 mmol/L (98-107); Estimated GFR 45.92 (mL/min/1.73m2); Glucose 117 mg/dL (74-106); Magnesium 1.4 mg/dL (1.8-2.4); PHOSPHORUS 3.7 mg/dL (2.6-4.7); Potassium 4.5 mmol/L (3.5-5.1); Sodium 139 mmol/L (136-145); Total Protein 6.5 g/dL (6.4-8.2)
[2019-09-24 09:04] LABS: Abs Immature Grans 0.87 k/cumm (0.0-0.09); Absolute Lymphocyte Count 0.96 k/cumm (1.2-3.4); Absolute Monocyte Count 0.66 k/cumm (0.11-0.7); Absolute Neutrophil Count 13.93 k/cumm (1.2-6.7); Basophils % 0.4; Eosinophils % 0.8; HCT 25.7 % (36.0-46.0); HGB 8.1 g/dL (12.0-15.5); Immature Grans % 5.2 %; Lymphocytes % 5.8; Mean Corp. HGB Concentration 31.5 g/dL (32.0-36.0); Mean Corpuscular Hemoglobin 30.2 pg (27.0-33.0); Mean Corpuscular Volume 95.9 fL (80-95); Mean Platelet Volume 10.4 fL (8.0-11.0); Neutrophils % 83.8; Platelet Count 223 x1000/uL (130-400); RBC 2.68 m/cumm (4.00-5.20); RBC Distribution Width 23.7 % (11.7-14.6); White Blood Cell Count 16.62 k/cumm (4.4-10.8)
[2019-09-24 09:05] LABS: Absolute Basophil Count 0.07 k/cumm (0.0-0.2); Absolute Eosinophil Count 0.13 k/cumm (0.0-0.7)
[2019-09-24] MEDS: MAGNESIUM SULFATE 4 GM/100 ML BAG IVPB (09:05)
[2019-09-24] MEDS: Normal Saline Flush 10 ML SYR IVP (09:05)
[2019-09-24] MEDS: Heparin 500 UNITS/5 ML SYRINGE IV (09:06)
[2019-09-24 09:57] LABS: Anisocytosis 2+; Basophilic Stippling Present; Diff Comment Diff Reviewed
[2019-09-24 10:00] LABS: Macrocytosis 1+; Polychromasia Present
[2019-09-24 10:01] LABS: Poikilocytes 1+
[2019-10-09 10:12] LABS: Abs Immature Grans 0.07 k/cumm (0.0-0.09); Absolute Basophil Count 0.01 k/cumm (0.0-0.2); Absolute Eosinophil Count 0.05 k/cumm (0.0-0.7); Absolute Lymphocyte Count 1.37 k/cumm (1.2-3.4); Absolute Monocyte Count 0.32 k/cumm (0.11-0.7); Absolute Neutrophil Count 7.97 k/cumm (1.2-6.7); Basophils % 0.1; Eosinophils % 0.5; HCT 26.5 % (36.0-46.0); HGB 8.6 g/dL (12.0-15.5); Immature Grans % 0.7 %; Mean Corp. HGB Concentration 32.5 g/dL (32.0-36.0); Mean Corpuscular Hemoglobin 33.3 pg (27.0-33.0); Mean Corpuscular Volume 102.7 fL (80-95); Mean Platelet Volume 10.2 fL (8.0-11.0); Monocytes % 3.3; Neutrophils % 81.4; Platelet Count 146 x1000/uL (130-400); RBC 2.58 m/cumm (4.00-5.20); White Blood Cell Count 9.79 k/cumm (4.4-10.8)
[2019-10-09 10:28] LABS: ALT 27 U/L (14-59); AST 12 U/L (15-37); Albumin 3.4 g/dL (3.4-5.0); Alkaline Phosphatase 110 U/L (46-116); BUN 35 mg/dL (7-18); Bilirubin, Total 0.3 mg/dL (0.2-1.0); CREATININE 1.18 mg/dL (0.55-1.02); Calcium 9.3 mg/dL (8.5-10.1); Chloride 106 mmol/L (98-107); Estimated GFR 45.02 (mL/min/1.73m2); Glucose 134 mg/dL (74-106); Magnesium 1.7 mg/dL (1.8-2.4); Potassium 4.7 mmol/L (3.5-5.1); Sodium 140 mmol/L (136-145); Total Protein 6.5 g/dL (6.4-8.2)
[2019-10-09 10:30] LABS: Anisocytosis 3+; Diff Comment RBC Morph Reviewed; Macrocytosis 1+; Poikilocytes 1+
[2019-10-09] MEDS: MAGNESIUM SULFATE 2 GM/50 ML BAG IVPB ×2 (10:54→12:24)
[2019-10-09] MEDS: Heparin 500 UNITS/5 ML SYRINGE IV (10:58)
[2019-10-09] MEDS: Normal Saline Flush 10 ML SYR IVP (10:58)
[2019-10-22] MEDS: Normal Saline Flush 10 ML SYR 30 ML IVP (08:03)
[2019-10-22] MEDS: Heparin 500 UNITS/5 ML SYRINGE IVP (08:04)
[2019-10-22 08:12] LABS: Abs Immature Grans 0.08 k/cumm (0.0-0.09); Absolute Eosinophil Count 0.02 k/cumm (0.0-0.7); Absolute Lymphocyte Count 0.81 k/cumm (1.2-3.4); Absolute Monocyte Count 0.33 k/cumm (0.11-0.7); Absolute Neutrophil Count 6.46 k/cumm (1.2-6.7); Eosinophils % 0.3; HCT 29.3 % (36.0-46.0); HGB 9.6 g/dL (12.0-15.5); Lymphocytes % 10.5; Mean Corp. HGB Concentration 32.8 g/dL (32.0-36.0); Mean Corpuscular Hemoglobin 34.7 pg (27.0-33.0); Mean Corpuscular Volume 105.8 fL (80-95); Mean Platelet Volume 9.9 fL (8.0-11.0); Monocytes % 4.3; Neutrophils % 83.9; Platelet Count 126 x1000/uL (130-400); RBC 2.77 m/cumm (4.00-5.20); RBC Distribution Width 23.2 % (11.7-14.6)
[2019-10-22 08:32] LABS: Anisocytosis 2+; Diff Comment RBC Morph Reviewed
[2019-10-22 08:33] LABS: Macrocytosis 2+; Poikilocytes 1+
[2019-10-22 08:34] LABS: ALT 29 U/L (14-59); AST 15 U/L (15-37); Albumin 3.4 g/dL (3.4-5.0); Alkaline Phosphatase 84 U/L (46-116); Anion Gap 10.1 mmol/L (3-11); BUN 35 mg/dL (7-18); Bilirubin, Total 0.3 mg/dL (0.2-1.0); CO2 24.9 mmol/L (21.0-32.0); CREATININE 1.12 mg/dL (0.55-1.02); Calcium 9.8 mg/dL (8.5-10.1); Chloride 107 mmol/L (98-107); Estimated GFR 47.82 (mL/min/1.73m2); Glucose 113 mg/dL (74-106); Magnesium 1.6 mg/dL (1.8-2.4); Potassium 3.9 mmol/L (3.5-5.1); Sodium 142 mmol/L (136-145); Total Protein 6.7 g/dL (6.4-8.2)
[2019-10-23 11:02] LABS: CMV Ab, IgM Negative (Negative)
[2019-10-23 13:18] LABS: Tacrolimus 5.4 ng/mL (See Note)
== END 2019-10-22 23:59 | disposition home or self-care (01) ==
LOC: INF 02:29
PROVIDERS: PCP Internal Medicine; Visit Provider Internal Medicine
DX: E87.6 Hypokalemia (principal); E83.42 Hypomagnesemia; Z94.84 Stem cells transplant status; D46.9 Myelodysplastic syndrome, unspecified; Z45.2 Encounter for adjustment and management of vascular access device
CPT/HCPCS: 36591; 80053; 96365; 96366; 80197; 83735; 84100; 85025; 86644; 86645; J3475

== ENCOUNTER 2019-11-11 00:53 | Outpatient (RCR) | payer BC, MEDICARE, SELFPAY ==
[2019-10-22] MEDS: MAGNESIUM SULFATE 2 GM/50 ML BAG IVPB ×2 (09:11→11:24)
[2019-10-22] MEDS: Heparin 500 UNITS/5 ML SYRINGE IV (09:11)
[2019-10-22] MEDS: Normal Saline Flush 10 ML SYR IVP (09:11)
[2019-10-29 07:31] LABS: Abs Immature Grans 0.12 k/cumm (0.0-0.09); Absolute Eosinophil Count 0.02 k/cumm (0.0-0.7); Absolute Lymphocyte Count 0.94 k/cumm (1.2-3.4); Absolute Monocyte Count 0.28 k/cumm (0.11-0.7); Eosinophils % 0.3; HCT 27.3 % (36.0-46.0); Immature Grans % 1.9 %; Lymphocytes % 15.3; Mean Corpuscular Hemoglobin 35.7 pg (27.0-33.0); Mean Corpuscular Volume 108.3 fL (80-95); Mean Platelet Volume 9.7 fL (8.0-11.0); Monocytes % 4.5; Platelet Count 125 x1000/uL (130-400); RBC 2.52 m/cumm (4.00-5.20); RBC Distribution Width 21.7 % (11.7-14.6); White Blood Cell Count 6.16 k/cumm (4.4-10.8)
[2019-10-29 07:44] LABS: ALT 28 U/L (14-59); AST 16 U/L (15-37); Albumin 3.4 g/dL (3.4-5.0); Alkaline Phosphatase 92 U/L (46-116); Anion Gap 9.8 mmol/L (3-11); BUN 48 mg/dL (7-18); Bilirubin, Total 0.2 mg/dL (0.2-1.0); CO2 23.2 mmol/L (21.0-32.0); CREATININE 1.23 mg/dL (0.55-1.02); Calcium 9.5 mg/dL (8.5-10.1); Chloride 108 mmol/L (98-107); Estimated GFR 42.92 (mL/min/1.73m2); Glucose 133 mg/dL (74-106); Magnesium 1.8 mg/dL (1.8-2.4); Potassium 4.8 mmol/L (3.5-5.1); Sodium 141 mmol/L (136-145); Total Protein 6.5 g/dL (6.4-8.2)
[2019-10-29] MEDS: Normal Saline Flush 10 ML SYR IVP (12:46)
[2019-10-29] MEDS: Heparin 500 UNITS/5 ML SYRINGE IV (12:46)
[2019-11-04] MEDS: Heparin 500 UNITS/5 ML SYRINGE IV (07:17)
[2019-11-04] MEDS: Normal Saline Flush 10 ML SYR IVP (07:17)
[2019-11-04 07:39] LABS: Abs Immature Grans 0.17 k/cumm (0.0-0.09); HCT 25.8 % (36.0-46.0); HGB 8.6 g/dL (12.0-15.5); Mean Corp. HGB Concentration 33.3 g/dL (32.0-36.0); Mean Corpuscular Hemoglobin 36.4 pg (27.0-33.0); Mean Corpuscular Volume 109.3 fL (80-95); Platelet Count 117 x1000/uL (130-400); RBC 2.36 m/cumm (4.00-5.20); RBC Distribution Width 20.8 % (11.7-14.6); White Blood Cell Count 3.28 k/cumm (4.4-10.8)
[2019-11-04 07:58] LABS: ALT 32 U/L (14-59); AST 15 U/L (15-37); Albumin 3.3 g/dL (3.4-5.0); Alkaline Phosphatase 74 U/L (46-116); Anion Gap 11.3 mmol/L (3-11); BUN 47 mg/dL (7-18); Bilirubin, Total 0.3 mg/dL (0.2-1.0); CO2 22.7 mmol/L (21.0-32.0); CREATININE 1.38 mg/dL (0.55-1.02); Calcium 9.6 mg/dL (8.5-10.1); Chloride 109 mmol/L (98-107); Estimated GFR 37.58 (mL/min/1.73m2); Glucose 140 mg/dL (74-106); Magnesium 1.9 mg/dL (1.8-2.4); Potassium 4.8 mmol/L (3.5-5.1); Sodium 143 mmol/L (136-145); Total Protein 6.3 g/dL (6.4-8.2)
[2019-11-04 07:59] LABS: Absolute Lymphocyte Count 0.79 k/cumm (1.2-3.4); Absolute Neutrophil Count 2.36 k/cumm (1.2-6.7); Anisocytosis 2+; Diff Comment Manual Differential; Macrocytosis 2+; Polychromasia Present
[2019-11-04 08:00] LABS: Poikilocytes 1+
[2019-11-05 14:26] LABS: Tacrolimus 9.2 ng/mL (See Note)
[2019-11-06 11:20] LABS: IgG 518 mg/dL (610-1,616)
[2019-11-06 19:39] LABS: CMV DNA Detect/Quant, P Undetected IU/mL (Undetected)
[2019-11-11 07:40] LABS: Abs Immature Grans 0.17 k/cumm (0.0-0.09); HGB 8.5 g/dL (12.0-15.5); Mean Corp. HGB Concentration 32.7 g/dL (32.0-36.0); Mean Corpuscular Hemoglobin 35.6 pg (27.0-33.0); Mean Corpuscular Volume 108.8 fL (80-95); Mean Platelet Volume 9.7 fL (8.0-11.0); Platelet Count 108 x1000/uL (130-400); RBC 2.39 m/cumm (4.00-5.20); RBC Distribution Width 18.6 % (11.7-14.6); White Blood Cell Count 2.26 k/cumm (4.4-10.8)
[2019-11-11 07:56] LABS: ALT 31 U/L (14-59); AST 18 U/L (15-37); Albumin 3.3 g/dL (3.4-5.0); Alkaline Phosphatase 77 U/L (46-116); Anion Gap 8.9 mmol/L (3-11); BUN 40 mg/dL (7-18); Bilirubin, Total 0.3 mg/dL (0.2-1.0); CO2 24.1 mmol/L (21.0-32.0); CREATININE 1.37 mg/dL (0.55-1.02); Calcium 9.5 mg/dL (8.5-10.1); Chloride 108 mmol/L (98-107); Glucose 116 mg/dL (74-106); Potassium 4.6 mmol/L (3.5-5.1); Sodium 141 mmol/L (136-145); Total Protein 6.6 g/dL (6.4-8.2)
[2019-11-11 08:30] LABS: Absolute Basophil Count 0.05 k/cumm (0.0-0.2); Absolute Eosinophil Count 0.05 k/cumm (0.0-0.7); Absolute Lymphocyte Count 0.54 k/cumm (1.2-3.4); Absolute Neutrophil Count 1.42 k/cumm (1.2-6.7); Diff Comment Manual Differential
[2019-11-11 08:31] LABS: Hypochromasia 1+; Macrocytosis 2+; Poikilocytes 1+; Polychromasia Present
[2019-11-12 14:07] LABS: Tacrolimus 9.8 ng/mL (See Note)
== END 2019-11-20 23:59 | disposition home or self-care (01) ==
LOC: INF 00:53
PROVIDERS: Internal Medicine; PCP Internal Medicine; Visit Provider Internal Medicine
DX: E78.00 Pure hypercholesterolemia, unspecified (principal); E03.9 Hypothyroidism, unspecified; Z94.81 Bone marrow transplant status; Z76.82 Awaiting organ transplant status; D46.9 Myelodysplastic syndrome, unspecified; R06.02 Shortness of breath
CPT/HCPCS: 36591; 80053; 82784; 96365; 96366; 80197; 83735; 85025; 87497

== ENCOUNTER 2019-11-28 08:13 | Outpatient (CLI) | payer BC, SELFPAY ==
--- NOTE | 2019-11-28 | DI.US_ITS ---
EXAM: US LOWER EXTREMITY VENOUS RT Ki CLINICAL HISTORY: PERSISTENT RT CALF PAIN, ? DVT, mds,d46.9,m79.661,H/O ALLOGENIC STEM CELL. TECHNIQUE: Right lower extremity venous ultrasound performed using grayscale, color-flow, and spectr al Doppler analysis. COMPARISON: No exams were available for comparison FINDINGS: Thrombus is visible beginning in the proximal portion of the femoral vein extending through the popli teal vein and involving the calf veins. Superficial thrombophlebitis is also seen in the small saphe nous vein. No hematoma or Wu's cyst is seen. IMPRESSION: Deep venous thrombosis from the groin through the calf. Small saphenous thrombophlebitis.. DATA REPOSITORY:
== END 2019-11-28 08:33 ==
PROVIDERS: PCP Internal Medicine; Visit Provider Nurse Practitioner
DX: M79.661 Pain in right lower leg (principal); D46.9 Myelodysplastic syndrome, unspecified; I82.411 Acute embolism and thrombosis of right femoral vein; I80.01 Phlebitis and thrombophlebitis of superficial vessels of right lower extremity; I82.431 Acute embolism and thrombosis of right popliteal vein
CPT/HCPCS: 93971

== ENCOUNTER 2019-12-17 01:43 | Outpatient (RCR) | payer BC, MEDICARE, SELFPAY ==
[2019-11-25] MEDS: Heparin 500 UNITS/5 ML SYRINGE IV (07:31)
[2019-11-25] MEDS: Normal Saline Flush 10 ML SYR IVP (07:31)
[2019-11-25 07:37] LABS: Abs Immature Grans 0.87 k/cumm (0.0-0.09); HCT 25.1 % (36.0-46.0); HGB 8.3 g/dL (12.0-15.5); Mean Corp. HGB Concentration 33.1 g/dL (32.0-36.0); Mean Corpuscular Hemoglobin 37.2 pg (27.0-33.0); Mean Corpuscular Volume 112.6 fL (80-95); Mean Platelet Volume 10.1 fL (8.0-11.0); RBC 2.23 m/cumm (4.00-5.20); RBC Distribution Width 17.6 % (11.7-14.6)
[2019-11-25 07:43] LABS: ALT 32 U/L (14-59); AST 24 U/L (15-37); Albumin 3.2 g/dL (3.4-5.0); Alkaline Phosphatase 82 U/L (46-116); Anion Gap 9.6 mmol/L (3-11); BUN 40 mg/dL (7-18); Bilirubin, Total 0.3 mg/dL (0.2-1.0); CO2 24.4 mmol/L (21.0-32.0); CREATININE 1.48 mg/dL (0.55-1.02); Calcium 9.5 mg/dL (8.5-10.1); Chloride 106 mmol/L (98-107); Estimated GFR 34.57 (mL/min/1.73m2); Glucose 110 mg/dL (74-106); Potassium 4.5 mmol/L (3.5-5.1); Sodium 140 mmol/L (136-145); Total Protein 6.4 g/dL (6.4-8.2)
[2019-11-25 08:20] LABS: Absolute Basophil Count 0.06 k/cumm (0.0-0.2); Absolute Eosinophil Count 0.06 k/cumm (0.0-0.7); Absolute Lymphocyte Count 0.84 k/cumm (1.2-3.4); Absolute Monocyte Count 0.78 k/cumm (0.11-0.7); Absolute Neutrophil Count 4.02 k/cumm (1.2-6.7); Diff Comment Manual Differential; Nucleated RBC 1 /100WBC
[2019-11-25 08:22] LABS: Hypochromasia 2+; Macrocytosis 2+
[2019-11-25 08:23] LABS: Platelet Count 96 x1000/uL (130-400); Polychromasia Present
[2019-11-26 11:35] LABS: IgG 449 mg/dL (610-1,616)
[2019-11-26 13:42] LABS: Tacrolimus 8.6 ng/mL (See Note)
[2019-11-28 12:33] LABS: CMV DNA Detect/Quant, P 52 IU/mL (Undetected)
[2019-12-09 07:27] LABS: Abs Immature Grans 0.54 k/cumm (0.0-0.09); Absolute Basophil Count 0.01 k/cumm (0.0-0.2); Absolute Eosinophil Count 0.03 k/cumm (0.0-0.7); Absolute Lymphocyte Count 1.27 k/cumm (1.2-3.4); Absolute Monocyte Count 0.47 k/cumm (0.11-0.7); Basophils % 0.2; Eosinophils % 0.5; HCT 23.4 % (36.0-46.0); HGB 7.5 g/dL (12.0-15.5); Immature Grans % 9.8 %; Mean Corp. HGB Concentration 32.1 g/dL (32.0-36.0); Mean Corpuscular Hemoglobin 37.1 pg (27.0-33.0); Mean Corpuscular Volume 115.8 fL (80-95); Mean Platelet Volume 9.9 fL (8.0-11.0); Monocytes % 8.5; RBC 2.02 m/cumm (4.00-5.20); RBC Distribution Width 18.1 % (11.7-14.6); White Blood Cell Count 5.52 k/cumm (4.4-10.8)
[2019-12-09 07:45] LABS: ALT 36 U/L (14-59); AST 20 U/L (15-37); Albumin 3.1 g/dL (3.4-5.0); Alkaline Phosphatase 87 U/L (46-116); Anion Gap 10.6 mmol/L (3-11); BUN 41 mg/dL (7-18); Bilirubin, Total 0.3 mg/dL (0.2-1.0); CO2 23.4 mmol/L (21.0-32.0); CREATININE 1.62 mg/dL (0.55-1.02); Calcium 9.5 mg/dL (8.5-10.1); Chloride 107 mmol/L (98-107); Estimated GFR 31.15 (mL/min/1.73m2); Glucose 118 mg/dL (74-106); Magnesium 1.7 mg/dL (1.8-2.4); Potassium 4.6 mmol/L (3.5-5.1); Sodium 141 mmol/L (136-145); Total Protein 6.2 g/dL (6.4-8.2)
[2019-12-09 07:53] LABS: Diff Comment Agrees w/ Instrument; Platelet Count 104 x1000/uL (130-400)
[2019-12-09 07:54] LABS: RBC Morphology Normal
[2019-12-09] MEDS: Normal Saline Flush 10 ML SYR IVP (09:11)
[2019-12-10 12:11] LABS: IgG 378 mg/dL (610-1,616)
[2019-12-10 13:33] LABS: Tacrolimus 8.6 ng/mL (See Note)
[2019-12-11 13:59] LABS: CMV DNA Detect/Quant, P 70 IU/mL (Undetected)
[2019-12-16 07:34] LABS: Abs Immature Grans 0.42 k/cumm (0.0-0.09); HCT 22.6 % (36.0-46.0); HGB 7.4 g/dL (12.0-15.5); Mean Corp. HGB Concentration 32.7 g/dL (32.0-36.0); Mean Corpuscular Hemoglobin 38.1 pg (27.0-33.0); Mean Corpuscular Volume 116.5 fL (80-95); Mean Platelet Volume 9.5 fL (8.0-11.0); Platelet Count 97 x1000/uL (130-400); RBC 1.94 m/cumm (4.00-5.20); RBC Distribution Width 17.8 % (11.7-14.6); White Blood Cell Count 6.14 k/cumm (4.4-10.8)
[2019-12-16 07:48] LABS: ALT 29 U/L (14-59); AST 22 U/L (15-37); Albumin 3.1 g/dL (3.4-5.0); Alkaline Phosphatase 71 U/L (46-116); Anion Gap 8.9 mmol/L (3-11); BUN 37 mg/dL (7-18); Bilirubin, Total 0.3 mg/dL (0.2-1.0); CO2 24.1 mmol/L (21.0-32.0); Calcium 9.3 mg/dL (8.5-10.1); Chloride 106 mmol/L (98-107); Estimated GFR 34.04 (mL/min/1.73m2); Glucose 140 mg/dL (74-106); Magnesium 1.5 mg/dL (1.8-2.4); Sodium 139 mmol/L (136-145); Total Protein 6.2 g/dL (6.4-8.2)
[2019-12-16 07:57] LABS: Absolute Lymphocyte Count 1.47 k/cumm (1.2-3.4); Absolute Neutrophil Count 3.87 k/cumm (1.2-6.7); Atypical Lymphocytes % 2
[2019-12-16 07:58] LABS: Absolute Eosinophil Count 0.06 k/cumm (0.0-0.7); Absolute Monocyte Count 0.43 k/cumm (0.11-0.7); Anisocytosis 2+; Basophilic Stippling Present; Diff Comment Manual Differential; Macrocytosis 2+; Microcytosis 1+; Poikilocytes 1+; Polychromasia Present
[2019-12-17] VITALS (8 sets, daily range): BP systolic 118–156; BP diastolic 66–94; PULSE 72–86; RESP 18–19; TEMP 36.2–37; O2SAT 98–100
[2019-12-17] MEDS: MAGNESIUM SULFATE 4 GM/100 ML BAG IVPB (07:15)
[2019-12-17] MEDS: Normal Saline Flush 10 ML SYR IVP (07:15)
[2019-12-17] MEDS: Heparin 500 UNITS/5 ML SYRINGE IV (11:03)
[2019-12-17 13:31] LABS: Tacrolimus 12.7 ng/mL (See Note)
== END 2019-12-21 23:59 | disposition home or self-care (01) ==
LOC: INF 01:43
PROVIDERS: PCP Internal Medicine; Visit Provider Internal Medicine
DX: D46.9 Myelodysplastic syndrome, unspecified (principal); Z76.82 Awaiting organ transplant status; Z94.81 Bone marrow transplant status; E78.00 Pure hypercholesterolemia, unspecified; E03.9 Hypothyroidism, unspecified; Z45.2 Encounter for adjustment and management of vascular access device
CPT/HCPCS: 36430; 36591; 80053; 82784; 86850; 86900; 86901; 86920; 86945; 96365; 96366; 80197; 83735; 85025; 86644; 87496; 87497; J3475; P9016

== ENCOUNTER 2020-01-20 02:06 | Outpatient (RCR) | payer BC, SELFPAY ==
[2019-12-23] MEDS: Normal Saline Flush 10 ML SYR IVP (07:31)
[2019-12-23] MEDS: Heparin 500 UNITS/5 ML SYRINGE IV (07:32)
[2019-12-23 07:41] LABS: HCT 25.7 % (36.0-46.0); HGB 8.4 g/dL (12.0-15.5); Mean Corp. HGB Concentration 32.7 g/dL (32.0-36.0); Mean Corpuscular Hemoglobin 35.6 pg (27.0-33.0); Mean Corpuscular Volume 108.9 fL (80-95); Mean Platelet Volume 10.2 fL (8.0-11.0); RBC 2.36 m/cumm (4.00-5.20); RBC Distribution Width 21.1 % (11.7-14.6); White Blood Cell Count 5.34 k/cumm (4.4-10.8)
[2019-12-23 07:51] LABS: ALT 33 U/L (14-59); AST 22 U/L (15-37); Albumin 3.4 g/dL (3.4-5.0); Alkaline Phosphatase 82 U/L (46-116); Anion Gap 9.3 mmol/L (3-11); BUN 37 mg/dL (7-18); Bilirubin, Total 0.3 mg/dL (0.2-1.0); CO2 24.7 mmol/L (21.0-32.0); Calcium 9.4 mg/dL (8.5-10.1); Chloride 106 mmol/L (98-107); Glucose 119 mg/dL (74-106); Magnesium 1.7 mg/dL (1.8-2.4); Potassium 4.1 mmol/L (3.5-5.1); Sodium 140 mmol/L (136-145); Total Protein 6.2 g/dL (6.4-8.2)
[2019-12-23 07:59] LABS: Absolute Basophil Count 0.05 k/cumm (0.0-0.2); Absolute Eosinophil Count 0.05 k/cumm (0.0-0.7); Absolute Lymphocyte Count 1.76 k/cumm (1.2-3.4); Absolute Monocyte Count 0.43 k/cumm (0.11-0.7); Absolute Neutrophil Count 2.78 k/cumm (1.2-6.7); Platelet Count 95 x1000/uL (130-400)
[2019-12-23 08:00] LABS: Anisocytosis 2+; Diff Comment Manual Differential; Macrocytosis 2+; Polychromasia Present
[2019-12-24 09:46] LABS: IgG 389 mg/dL (610-1,616)
[2019-12-24 13:45] LABS: Tacrolimus 10.5 ng/mL (See Note)
[2019-12-26 15:43] LABS: CMV DNA Detect/Quant, P 329 IU/mL (Undetected)
== END 2020-01-20 23:59 | disposition home or self-care (01) ==
LOC: INF 02:06
PROVIDERS: PCP Internal Medicine; Visit Provider Internal Medicine
DX: D46.9 Myelodysplastic syndrome, unspecified (principal); Z94.81 Bone marrow transplant status; Z76.82 Awaiting organ transplant status; Z45.2 Encounter for adjustment and management of vascular access device
CPT/HCPCS: 36591; 80053; 82784; 80197; 83735; 85025; 87496; 87497

== ENCOUNTER 2020-02-19 02:02 | Outpatient (RCR) | payer BC, SELFPAY ==
[2020-02-12] MEDS: Heparin 500 UNITS/5 ML SYRINGE (07:17)
[2020-02-12] MEDS: Normal Saline Flush 10 ML SYR 30 ML IVP (07:23)
[2020-02-12 07:29] LABS: Abs Immature Grans 0.09 k/cumm (0.0-0.09); Absolute Basophil Count 0.01 k/cumm (0.0-0.2); Absolute Eosinophil Count 0.03 k/cumm (0.0-0.7); Absolute Lymphocyte Count 2.43 k/cumm (1.2-3.4); Absolute Monocyte Count 0.69 k/cumm (0.11-0.7); Basophils % 0.2; Eosinophils % 0.5; HCT 26.1 % (36.0-46.0); HGB 8.4 g/dL (12.0-15.5); Immature Grans % 1.4 %; Lymphocytes % 38.3; Mean Corp. HGB Concentration 32.2 g/dL (32.0-36.0); Mean Corpuscular Hemoglobin 34.9 pg (27.0-33.0); Mean Corpuscular Volume 108.3 fL (80-95); Mean Platelet Volume 9.7 fL (8.0-11.0); Monocytes % 10.9; Neutrophils % 48.7; Platelet Count 134 x1000/uL (130-400); RBC 2.41 m/cumm (4.00-5.20); RBC Distribution Width 25.4 % (11.7-14.6); White Blood Cell Count 6.35 k/cumm (4.4-10.8)
[2020-02-12 07:41] LABS: Anisocytosis 2+; Diff Comment RBC Morph Reviewed; Macrocytosis 2+; Polychromasia Present
[2020-02-12 07:42] LABS: ALT 330 U/L (14-59); AST 183 U/L (15-37); Albumin 3.1 g/dL (3.4-5.0); Alkaline Phosphatase 259 U/L (46-116); Anion Gap 12.7 mmol/L (3-11); BUN 27 mg/dL (7-18); Bilirubin, Total 0.4 mg/dL (0.2-1.0); CO2 23.3 mmol/L (21.0-32.0); CREATININE 1.18 mg/dL (0.55-1.02); Calcium 9.2 mg/dL (8.5-10.1); Chloride 107 mmol/L (98-107); Glucose 144 mg/dL (74-106); Magnesium 1.7 mg/dL (1.8-2.4); Potassium 4.1 mmol/L (3.5-5.1); Sodium 143 mmol/L (136-145); Total Protein 6.7 g/dL (6.4-8.2)
[2020-02-13 10:25] LABS: IgG 654 mg/dL (610-1,616)
[2020-02-14 18:07] LABS: CMV DNA Detect/Quant, P 412 IU/mL (Undetected)
[2020-02-19] MEDS: Normal Saline Flush 10 ML SYR 30 ML IVP (07:15)
[2020-02-19] MEDS: Heparin 500 UNITS/5 ML SYRINGE IV (07:15)
[2020-02-19 07:31] LABS: Abs Immature Grans 0.17 10^3/uL (0.0-0.06); Absolute Basophil Count 0.01 10^3/uL (0.0-0.2); Absolute Eosinophil Count 0.02 10^3/uL (0.0-0.7); Absolute Lymphocyte Count 2.14 10^3/uL (1.2-3.4); Absolute Monocyte Count 0.76 10^3/uL (0.1-0.8); Absolute Neutrophil Count 3.99 10^3/uL (1.2-6.7); Basophils % 0.1; Eosinophils % 0.3; HGB 8.4 g/dL (11.2-15.7); Immature Grans % 2.4; Lymphocytes % 30.2; MCH 35.9 pg (27.0-33.0); MCHC 32.3 % (32.0-36.0); MCV 111.1 fL (80-95); Monocytes % 10.7; Neutrophils % 56.3; Platelet Count 130 10^3/uL (130-400); RBC 2.34 10^6/uL (3.93-5.22); WBC 7.09 10^3/uL (4.4-10.8)
[2020-02-19 07:50] LABS: ALT 114 U/L (14-59); AST 28 U/L (15-37); Albumin 3.3 g/dL (3.4-5.0); Alkaline Phosphatase 171 U/L (46-116); BUN 37 mg/dL (7-18); Bilirubin, Total 0.3 mg/dL (0.2-1.0); CREATININE 1.08 mg/dL (0.55-1.02); Calcium 9.6 mg/dL (8.5-10.1); Chloride 105 mmol/L (98-107); Estimated GFR 49.73 (mL/min/1.73m2); Glucose 101 mg/dL (74-106); Magnesium 1.8 mg/dL (1.8-2.4); Potassium 3.7 mmol/L (3.5-5.1); Sodium 139 mmol/L (136-145); Total Protein 6.6 g/dL (6.4-8.2)
[2020-02-19 07:52] LABS: Anisocytosis 3+; Diff Comment RBC Morph Reviewed; Macrocytosis 1+; Microcytosis 1+; Poikilocytes 1+; Polychromasia Present
[2020-02-20 10:04] LABS: IgG 570 mg/dL (610-1,616)
[2020-02-21 15:53] LABS: CMV DNA Detect/Quant, P 318 IU/mL (Undetected)
== END 2020-02-20 23:59 | disposition home or self-care (01) ==
LOC: INF 02:02
PROVIDERS: PCP Internal Medicine; Visit Provider Internal Medicine
DX: Z94.84 Stem cells transplant status (principal); D64.9 Anemia, unspecified; D80.1 Nonfamilial hypogammaglobulinemia
CPT/HCPCS: 36591; 80053; 82784; 83735; 85025; 87496; 87497

== ENCOUNTER 2020-03-17 10:43 | Outpatient (RCR) | payer BC, SELFPAY ==
[2020-03-17] MEDS: Heparin 500 UNITS/5 ML SYRINGE (11:41)
[2020-03-17] MEDS: Normal Saline Flush 10 ML SYR IVP (11:41)
[2020-03-17 12:04] LABS: Abs Immature Grans 0.23 10^3/uL (0.0-0.06); Absolute Basophil Count 0.02 10^3/uL (0.0-0.2); Absolute Eosinophil Count 0.03 10^3/uL (0.0-0.7); Absolute Lymphocyte Count 2.78 10^3/uL (1.2-3.4); Absolute Monocyte Count 0.61 10^3/uL (0.1-0.8); Absolute Neutrophil Count 2.69 10^3/uL (1.2-6.7); Basophils % 0.3; Eosinophils % 0.5; HCT 29.5 % (36.0-46.0); HGB 9.4 g/dL (11.2-15.7); Immature Grans % 3.6; Lymphocytes % 43.7; MCH 36.9 pg (27.0-33.0); MCHC 31.9 % (32.0-36.0); MCV 115.7 fL (80-95); MPV 10.2 fL (8.0-11.0); Monocytes % 9.6; Neutrophils % 42.3; Nucleated RBC 1 %; Platelet Count 140 10^3/uL (130-400); RBC 2.55 10^6/uL (3.93-5.22); RDW 19.2 % (11.7-14.6); RDW-SD 82.4 fL; WBC 6.36 10^3/uL (4.4-10.8)
[2020-03-17 12:31] LABS: Anisocytosis 1+; Diff Comment RBC Morph Reviewed; Macrocytosis 2+; Polychromasia Present
== END 2020-03-22 23:59 | disposition home or self-care (01) ==
LOC: INF 10:43
PROVIDERS: PCP Internal Medicine; Visit Provider Internal Medicine
DX: Z94.84 Stem cells transplant status (principal); Z45.2 Encounter for adjustment and management of vascular access device
CPT/HCPCS: 36591; 85025

== ENCOUNTER 2020-08-23 02:11 | Outpatient (CLI) | payer BC, OTHER, SELFPAY ==
--- NOTE | 2020-08-23 14:29 | DI.CT_ITS ---
EXAM: CT THORACIC SPINE W CLINICAL HISTORY: 2 YR S/P ALLO TRANSPLANT, PERSISTENT MARKO MID BACK PAIN LATERAL TO SPINE. TECHNIQUE: Imaging Protocol: Axial computed tomography images with coronal and sagittal reformatted images were created and reviewed. CONTRAST MATERIAL: Intravenous: Omnipaque 350 Contrast volume:100 mL. COMPARISON: No exams were available for comparison FINDINGS: There is normal alignment of the thoracic spine. Mild degenerative changes are seen in the thoracic spine. The bones appear normally mineralized. No acute fracture or subluxation. The visualized por tions of the ribs are unremarkable. No rib enlargement, lytic or sclerotic lesions are seen. No posterior mediastinal or paraspinal masses or enhancing lesions are identified. The paraspinal mu sculature appears symmetric and unremarkable. Calcified lymph nodes are seen in the mediastinum suggestive of prior granulomatous disease. Calcifi ed granuloma are seen in the lungs. There is a peripheral infiltrate seen in the right upper lobe. Heart size appears within normal limits. Mild coronary artery calcification is present. There is at herosclerosis of the thoracic aorta. The visualized upper abdominal images are unremarkable. IMPRESSION: 1. No acute fracture or subluxation in the thoracic spine. 2. No evidence of a rib lesion, posterior mediastinal or paraspinal mass or enhancing lesion. 3. Small peripheral infiltrate in the right upper lobe. This is nonspecific. This may represent ate lectasis, scarring or pneumonia. Please correlate clinically. 4. Findings of prior granulomatous disease. 5. Atherosclerosis and coronary artery calcifications. RADIATION DOSE DELIVERED: 586.11mGy.cm Total DLP DATA REPOSITORY: All CT scans at this facility are submitted to the National Radiology Data Registry (NRDR) Dose Index Registry (DIR) with the [employer] (A[employer]). RADIATION OPTIMIZATION: All CT scans at this facility use at least one of these dose optimization te chniques: automated exposure control; mA and/or kV adjustment per patient size (includes targeted exa ms where dose is matched to clinical indication); or iterative reconstruction.
[2020-08-23] MEDS: Normal Saline - Diluent 50 ML VIAL IV (14:36)
[2020-08-23] MEDS: Omnipaque 350 MG/ML 100 ML BTL IJ (14:36)
[2020-08-23] MEDS: Normal Saline Flush 10 ML SYR IVP (14:37)
== END 2020-08-23 02:31 ==
PROVIDERS: PCP Internal Medicine; Visit Provider Nurse Practitioner
DX: R91.8 Other nonspecific abnormal finding of lung field (principal); M54.9 Dorsalgia, unspecified; Z94.81 Bone marrow transplant status; M47.814 Spondylosis without myelopathy or radiculopathy, thoracic region
CPT/HCPCS: 72129; J3490